=== PATIENT | female | born 1995 ===

== ENCOUNTER 2017-10-26 15:17 | Emergency (ER) | payer BC ==
[2017-10-26 15:24] VITALS: BMI 24.5
[2017-10-26 15:25] VITALS: BP 129/83; PULSE 90; RESP 18; TEMP 98.6; O2SAT 100
[2017-10-26] MEDS ORDERED: Dexamethasone 4 mg/1 ml IM STA (15:35)
--- NOTE | 2017-10-26 16:09 | C.PDOC ---
History Of Present Illness 22 y/o female presents to the emergency department with complaints of a funny feeling in her throat, onset earlier today. She states it started after eating mushrooms at a restaurant. Patient denies having any known food allergies. She denies shortness of breath, lip/tongue swelling, fever, difficulty swallowing, or other complaints. Time Seen by Provider: 10/26/17 15:31 Chief Complaint (Nursing): Allergic Reaction History Per: Patient History/Exam Limitations: no limitations Onset/Duration Of Symptoms: Hrs Current Symptoms Are (Timing): Still Present Context: Food Possible Cause: Unknown Past Medical History Reviewed: Historical Data, Nursing Documentation, Vital Signs Vital Signs: Last Vital Signs Temp 98.6 F 10/26/17 15:24 Pulse 90 10/26/17 15:24 Resp 18 10/26/17 15:24 BP 129/83 10/26/17 15:24 Pulse Ox 100 10/26/17 16:11 - Medical History PMH: Anxiety Denies: Chronic Kidney Disease Surgical History: Cholecystectomy - [facility] Procedures DELIVERY OF PRODUCTS OF CONCEPTION, EXTERNAL APPROACH (05/21/16) OTH LAPAROSCOP LOCAL EXCIS/DESTRUCT OVARY (10/25/13) REPAIR PERINEUM SKIN, EXTERNAL APPROACH (05/21/16) Family History: States: No Known Family Hx - Social History Hx Alcohol Use: Yes Hx Substance Use: No - Immunization History Hx Tetanus Toxoid Vaccination: No Hx Influenza Vaccination: Yes Hx Pneumococcal Vaccination: No Review Of Systems Except As Marked, All Systems Reviewed And Found Negative. Constitutional: Negative for: Fever, Chills ENT: Negative for: Mouth Swelling, Throat Swelling Respiratory: Negative for: Shortness of Breath Skin: Negative for: Rash Physical Exam - Physical Exam Appears: Non-toxic, No Acute Distress Skin: Normal Color, Warm, Dry, No Rash Head: Atraumatic, Normacephalic Eye(s): bilateral: Normal Inspection, PERRL, EOMI Oral Mucosa: Moist Tongue: Normal Appearing, No Swelling Throat: Normal (airway is patent), No Erythema, No Drooling, No Mass Neck: Normal ROM, Supple Chest: Symmetrical Cardiovascular: Rhythm Regular, No Murmur Respiratory: Normal Breath Sounds, No Accessory Muscle Use, No Rales, No Rhonchi , No Wheezing Extremity: Bilateral: Atraumatic, Normal Color And Temperature, Normal ROM Pulses: Left Radial: Normal, Right Radial: Normal Neurological/Psych: Oriented x3, Normal Speech ED Course And Treatment O2 Sat by Pulse Oximetry: 100 (RA) Pulse Ox Interpretation: Normal Medical Decision Making Medical Decision Making: Impression: 22 year old here for eval of allergic reaction Plan: --Decadron 10 mg IM Patient is stable for discharge home. Provided with prescription for prednisone. Counseled patient regarding diagnosis and follow up instructions. Disposition Counseled Patient/Family Regarding: Diagnosis, Need For Followup, Rx Given - Disposition Referrals: [facility] Sly Morelos, [Non-Staff] - Disposition: HOME/ ROUTINE Disposition Time: 15:35 Condition: GOOD Additional Instructions: ZEINAB HERNANDEZ, thank you for letting us take care of you today. Your provider was Julian Lino DO and you were treated for ALLERGIC REACTION. The emergency medical care you received today was directed at your acute symptoms. If you were prescribed any medication, please fill it and take as directed. It may take several days for your symptoms to resolve. Return to the Emergency Department if your symptoms worsen, do not improve, or if you have any other problems. Please contact your doctor or call one of the physicians/clinics you have been referred to that are listed on the Patient Visit Information form that is included in your discharge packet. Bring any paperwork you were given at discharge with you along with any medications you are taking to your follow up visit. Our treatment cannot replace ongoing medical care by a primary care provider outside of the emergency department. Thank you for allowing the [facility] team to be part of your care today. Follow up with your primary care doctor if you have any concerns. Prescriptions: predniSONE [Prednisone] 40 mg PO DAILY #10 tab Instructions: Food Allergy Forms: [employer] (I[place]ic), Work Excuse - POA Present On Arrival: None - Clinical Impression Clinical Impression: Food allergy - Scribe Statement The provider has reviewed the documentation as recorded by the Erik Serrano Provider Attestation: All medical record entries made by the Erik were at my direction and personally dictated by me. I have reviewed the chart and agree that the record accurately reflects my personal performance of the history, physical exam, medical decision making, and the department course for this patient. I have also personally directed, reviewed, and agree with the discharge instructions and disposition.
== END 2017-10-26 16:05 | disposition home or self-care (01) ==
LOC: C.ER 15:17
DX: L27.2 Dermatitis due to ingested food (principal)
CPT/HCPCS: 96372; 99284; J1100